=== PATIENT | male | born 1985 | race Caucasian/White ===

== ENCOUNTER 2018-11-13 18:10 | Inpatient (IN) ==
--- NOTE | 2018-11-13 18:14 | Emergency Department Note ---
Disposition Clinical Impression: Hyponatremia Disposition: Admitted As Inpatient Condition: Good Time of Disposition: 23:17 General Adult HPI - General Stated complaint: General illness Time Seen by Provider: 11/13/18 18:13 Nursing Notes Reviewed: Yes Vital Signs Reviewed: Yes - History of Present Illness HPI Narrative: 33-year-old male who presents the emergency department via EMS from the [facility] due to nausea, vomiting and elevated glucose. The patient was seen today due to 3 days worth of vomiting, abdominal and back pain. The patient states he has diabetes for which he takes metformin but was told he needs to go to start taking insulin which she has not started. He also has a history of pancreatitis and this feels slightly similar but not as severe. He notes that he was concerned about food poisoning getting some old mustard that he ate and had several episodes of vomiting but this has since resolved. The patient was seen at [facility] and was given 1 L fluid bolus and reportedly sugar went down from 400-200. Patient states he continues to have slight abdominal pain and back pain but this is improving. He denies any dysuria, hematuria, polyuria, polydipsia, lightheadedness, dizziness, chest pain, shortness of breath. The patient wanted a work note as he has been having difficulty twisting with his back and abdominal pain. He denies current alcoholism. At the [facility] the patient was found to be hyperglycemic with glucose 506. Lipase elevated at 45. Otherwise patient had slight leukocytosis 12.3 hemoglobin stable 15.5. Urinalysis shows elevated glucose and 10 ketones but no evidence of urinary tract infection. The patient was sent to the emergency department at [place] secondary to inability to pronate BMP to check kidney function due to his blood being lipophilic. - Related Data Previous Rx's Medication Instructions Recorded Cyclobenzaprine HCl 10 mg PO TID PRN #15 tablet 08/02/16 predniSONE [PredniSONE] 40 mg PO DAILY 5 Days tablet 08/02/16 Allergies Allergy/AdvReac Type Severity Reaction Status Date / Time Penicillins Allergy Anaphylaxis Verified 08/06/18 00:30 Sulfa (Sulfonamide Allergy Hives Verified 08/06/18 00:30 Antibiotics) Review of Systems: ROS per history of present illness, all other systems reviewed and negative or normal. All systems ED: reviewed and negative except as stated. Review of Systems: As Per HPI Past Medical History - Past Medical History Medical history: Reports: no medical history Psychiatric history: Reports: no psych history - Social History Smoking Status: Former smoker Smokeless Tobacco Status: No Alcohol use: Reports: none Drug use: Reports: none Physical Exam General: Conversant. No apparent distress. Follow commands. Appears stated age. Neck: No JVD. Trachea midline. Neck supple. Eyes: PERRL. No scleral icterus. HENT: Normocephalic and atraumatic. Slightly dry mucus membranes. Cardiovascular: Regular rate and rhythm. Normal S1 and S2. No murmurs appreciated. Normal capillary refill. Extremities well perfused with 2+ distal pulses bilaterally. No edema. Pulmonary: Normal and equal breath sounds bilaterally, anteriorly and posteriorly. No wheezes, rales, or rhonchi. Not in respiratory distress. Speaks in full sentences. Abdomen: Soft, nondistended. Mild epigastric pain. No bruits or masses. No guarding. No rigidity Neuro: Alert and oriented x3. No slurred speech. No focal deficits noted. Skin: No rashes noted on visualized skin. Musculoskeletal: No bony abnormalities visualized. Moves all extremities. Psych: Normal mood. Pleasant. Makes appropriate eye contact. Course - Reevaluation(s) Reevaluation #1: Labs hemolyzed likely secondary to significant triglyceride levels. We will redraw. Time: 18:43 Vital Signs Temperature 99.7 F H 11/13/18 18:20 Pulse Rate 100 11/13/18 18:20 Respiratory Rate 16 11/13/18 18:20 Blood Pressure 147/102 11/13/18 18:20 O2 Sat by Pulse Oximetry 99 11/13/18 18:20 Temperature 99.7 F H 11/13/18 18:20 Pulse Rate 79 11/13/18 23:00 Respiratory Rate 16 11/13/18 18:20 Blood Pressure 148/103 11/13/18 23:00 O2 Sat by Pulse Oximetry 99 11/13/18 18:20 Oxygen Delivery Oxygen Delivery Room Air Medical Decision Making - [facility] Narrative Medical decision making narrative: 33-year-old male who presents emergency Department with complaints of nausea, vomiting and generalized weakness over the last few days. He was sent from the [facility] due to lipemic blood draws with difficulty obtaining BMP to evaluate for suspected kidney failure per their notes. He was given 1L at the [facility]. Otherwise laboratory evaluation shows no significant leukocytosis. Lipase is elevated. The patient has cellulitis signs upon arrival. He has mid epigastric pain without rigidity or guarding. He does not appear significantly dehydrated or volume overloaded. The patient's care was delayed given difficulty obtaining adequate specimen for analysis but BMP shows hyponatremia down to 119. Repeat sodium 120. The patient's kidney function is normal. The patient does not appear fluid overloaded but this may be related to recent vomiting and dehydration. He does have a history of alcoholism but states he does not drink anymore. We will obtain urine studies and patient is agreeable to plan for admission. 1 L fluid bolus normal saline given. Discussed case with on-call hospitalist Dr. Clarke and Roro who agrees with plan for admission and accepts the patient to the inpatient service. Patient agrees with and understands course of treatment plan including plan for admission. All questions answered. - Medical Records Medical records reviewed: Yes I reviewed the patient's medical records. - Lab Data Lab results reviewed: Yes I reviewed the patient's lab results. Result diagrams: 11/13/18 21:48 Lab Results 11/13/18 11/13/18 11/13/18 Range/Units 18:43 18:43 19:46 Sodium 120 L* (136-145) mEq/L Potassium 4.3 (3.5-5.1) mEq/L Chloride 94 L (98-107) mEq/L Carbon Dioxide 22 L (23-29) mEq/L BUN 8 (6-20) mg/dL Creatinine 0.77 (0.70-1.30) mg/dL Est GFR ( Amer) > 60 (> 60) Est GFR (Non-Af Amer) > 60 (> 60) BUN/Creatinine Ratio 10 (6-26) Glucose 216 H (70-105) mg/dL Calculated Osmolality 255 L (280-300) Calcium 8.0 L (8.6-10.3) mg/dL Albumin (3.5-5.7) g/dL Beta-Hydroxybutyric Acd 1.35 H (0.02-0.27) mmol/L Urine Color (Yellow) Urine Clarity (Clear) Urine pH (5.0-8.0) pH Units Ur Specific [place] (1.010-1.025) Urine Protein (Neg-Trace) mg/dL Urine Glucose (UA) (Normal) mg/dL Urine Ketones (Negative) mg/dL Urine Blood (Negative) Urine Nitrite (Negative) Urine Bilirubin (Negative) Urine Urobilinogen (Normal) mg/dL Ur Leukocyte Esterase (Negative) Urine Creatinine mg/dL Urine Sodium mEq/L Specimen Rejected Hemolyzed 11/13/18 11/13/18 11/13/18 Range/Units 21:48 21:48 23:02 Sodium 121 L (136-145) mEq/L Potassium (3.5-5.1) mEq/L Chloride (98-107) mEq/L Carbon Dioxide (23-29) mEq/L BUN (6-20) mg/dL Creatinine (0.70-1.30) mg/dL Est GFR ( Amer) (> 60) Est GFR (Non-Af Amer) (> 60) BUN/Creatinine Ratio (6-26) Glucose (70-105) mg/dL Calculated Osmolality (280-300) Calcium (8.6-10.3) mg/dL Albumin 4.4 (3.5-5.7) g/dL Beta-Hydroxybutyric Acd (0.02-0.27) mmol/L Urine Color Yellow (Yellow) Urine Clarity Clear (Clear) Urine pH 6.0 (5.0-8.0) pH Units Ur Specific [place] > 1.030 H (1.010-1.025) Urine Protein 30 H (Neg-Trace) mg/dL Urine Glucose (UA) >=1000 H (Normal) mg/dL Urine Ketones 80 H (Negative) mg/dL Urine Blood Negative (Negative) Urine Nitrite Negative (Negative) Urine Bilirubin Negative (Negative) Urine Urobilinogen Normal (Normal) mg/dL Ur Leukocyte Esterase Trace H (Negative) Urine Creatinine mg/dL Urine Sodium mEq/L Specimen Rejected 11/13/18 Range/Units 23:02 Sodium (136-145) mEq/L Potassium (3.5-5.1) mEq/L Chloride (98-107) mEq/L Carbon Dioxide (23-29) mEq/L BUN (6-20) mg/dL Creatinine (0.70-1.30) mg/dL Est GFR ( Amer) (> 60) Est GFR (Non-Af Amer) (> 60) BUN/Creatinine Ratio (6-26) Glucose (70-105) mg/dL Calculated Osmolality (280-300) Calcium (8.6-10.3) mg/dL Albumin (3.5-5.7) g/dL Beta-Hydroxybutyric Acd (0.02-0.27) mmol/L Urine Color (Yellow) Urine Clarity (Clear) Urine pH (5.0-8.0) pH Units Ur Specific [place] (1.010-1.025) Urine Protein (Neg-Trace) mg/dL Urine Glucose (UA) (Normal) mg/dL Urine Ketones (Negative) mg/dL Urine Blood (Negative) Urine Nitrite (Negative) Urine Bilirubin (Negative) Urine Urobilinogen (Normal) mg/dL Ur Leukocyte Esterase (Negative) Urine Creatinine 91 mg/dL Urine Sodium 82.0 mEq/L Specimen Rejected Attestation Statement - Attestation Attestation: I, Reinaldo Del Valle DO, examined this patient [id number] and my medical decision-making was reviewed with Dr. Susie Bland, Resident Physician. I agree with the documented findings, disposition and treatment plan as described except to the extent set forth below. I personally supervised and was present for the ochoa/critical portions of the procedures completed by the resident documented below. Please see my progress notes for details.
--- NOTE | 2018-11-13 20:06 | Emergency Department Note ---
Disposition Clinical Impression: Hyponatremia Disposition: Admitted As Inpatient Condition: Fair Time of Disposition: 23:45 General Adult HPI - General Chief complaint: ED General Medical Stated complaint: General illness Time Seen by Provider: 11/13/18 18:13 Source: patient, EMS Limitations: no limitations - History of Present Illness Pain Scale: 7 - Related Data Previous Rx's Medication Instructions Recorded Cyclobenzaprine HCl 10 mg PO TID PRN #15 tablet 08/02/16 predniSONE [PredniSONE] 40 mg PO DAILY 5 Days tablet 08/02/16 Allergies Allergy/AdvReac Type Severity Reaction Status Date / Time Penicillins Allergy Anaphylaxis Verified 08/06/18 00:30 Sulfa (Sulfonamide Allergy Hives Verified 08/06/18 00:30 Antibiotics) Past Medical History - Past Medical History Medical history: Reports: diabetes, hyperlipidemia Psychiatric history: Reports: no psych history - Social History Smoking Status: Current every day smoker Smokeless Tobacco Status: No Alcohol use: Reports: none Drug use: Reports: none Physical Exam - General Limitations: no limitations General appearance: alert, in no apparent distress Course Vital Signs Temperature 99.7 F H 11/13/18 18:20 Pulse Rate 100 11/13/18 18:20 Respiratory Rate 16 11/13/18 18:20 Blood Pressure 147/102 11/13/18 18:20 O2 Sat by Pulse Oximetry 99 11/13/18 18:20 Temperature 99.7 F H 11/13/18 18:20 Pulse Rate 79 11/13/18 23:00 Respiratory Rate 16 11/13/18 18:20 Blood Pressure 148/103 11/13/18 23:00 O2 Sat by Pulse Oximetry 99 11/13/18 18:20 Oxygen Delivery Oxygen Delivery Room Air Medical Decision Making - Lab Data Result diagrams: 11/13/18 21:48 Lab Results 11/13/18 11/13/18 11/13/18 Range/Units 18:43 18:43 19:46 Sodium 120 L* (136-145) mEq/L Potassium 4.3 (3.5-5.1) mEq/L Chloride 94 L (98-107) mEq/L Carbon Dioxide 22 L (23-29) mEq/L BUN 8 (6-20) mg/dL Creatinine 0.77 (0.70-1.30) mg/dL Est GFR ( Amer) > 60 (> 60) Est GFR (Non-Af Amer) > 60 (> 60) BUN/Creatinine Ratio 10 (6-26) Glucose 216 H (70-105) mg/dL Calculated Osmolality 255 L (280-300) Calcium 8.0 L (8.6-10.3) mg/dL Albumin (3.5-5.7) g/dL Beta-Hydroxybutyric Acd 1.35 H (0.02-0.27) mmol/L Urine Color (Yellow) Urine Clarity (Clear) Urine pH (5.0-8.0) pH Units Ur Specific [place] (1.010-1.025) Urine Protein (Neg-Trace) mg/dL Urine Glucose (UA) (Normal) mg/dL Urine Ketones (Negative) mg/dL Urine Blood (Negative) Urine Nitrite (Negative) Urine Bilirubin (Negative) Urine Urobilinogen (Normal) mg/dL Ur Leukocyte Esterase (Negative) Urine Creatinine mg/dL Urine Sodium mEq/L Specimen Rejected Hemolyzed 11/13/18 11/13/18 11/13/18 Range/Units 21:48 21:48 23:02 Sodium 121 L (136-145) mEq/L Potassium (3.5-5.1) mEq/L Chloride (98-107) mEq/L Carbon Dioxide (23-29) mEq/L BUN (6-20) mg/dL Creatinine (0.70-1.30) mg/dL Est GFR ( Amer) (> 60) Est GFR (Non-Af Amer) (> 60) BUN/Creatinine Ratio (6-26) Glucose (70-105) mg/dL Calculated Osmolality (280-300) Calcium (8.6-10.3) mg/dL Albumin 4.4 (3.5-5.7) g/dL Beta-Hydroxybutyric Acd (0.02-0.27) mmol/L Urine Color Yellow (Yellow) Urine Clarity Clear (Clear) Urine pH 6.0 (5.0-8.0) pH Units Ur Specific [place] > 1.030 H (1.010-1.025) Urine Protein 30 H (Neg-Trace) mg/dL Urine Glucose (UA) >=1000 H (Normal) mg/dL Urine Ketones 80 H (Negative) mg/dL Urine Blood Negative (Negative) Urine Nitrite Negative (Negative) Urine Bilirubin Negative (Negative) Urine Urobilinogen Normal (Normal) mg/dL Ur Leukocyte Esterase Trace H (Negative) Urine Creatinine mg/dL Urine Sodium mEq/L Specimen Rejected 11/13/18 Range/Units 23:02 Sodium (136-145) mEq/L Potassium (3.5-5.1) mEq/L Chloride (98-107) mEq/L Carbon Dioxide (23-29) mEq/L BUN (6-20) mg/dL Creatinine (0.70-1.30) mg/dL Est GFR ( Amer) (> 60) Est GFR (Non-Af Amer) (> 60) BUN/Creatinine Ratio (6-26) Glucose (70-105) mg/dL Calculated Osmolality (280-300) Calcium (8.6-10.3) mg/dL Albumin (3.5-5.7) g/dL Beta-Hydroxybutyric Acd (0.02-0.27) mmol/L Urine Color (Yellow) Urine Clarity (Clear) Urine pH (5.0-8.0) pH Units Ur Specific [place] (1.010-1.025) Urine Protein (Neg-Trace) mg/dL Urine Glucose (UA) (Normal) mg/dL Urine Ketones (Negative) mg/dL Urine Blood (Negative) Urine Nitrite (Negative) Urine Bilirubin (Negative) Urine Urobilinogen (Normal) mg/dL Ur Leukocyte Esterase (Negative) Urine Creatinine 91 mg/dL Urine Sodium 82.0 mEq/L Specimen Rejected Attestation Statement - Attestation Attestation: I, Reinaldo Del Valle DO, examined this patient [id number] and my medical decision-making was reviewed with Dr. Susie Bland, Resident Physician. I agree with the documented findings, disposition and treatment plan as described except to the extent set forth below. I personally supervised and was present for the ochoa/critical portions of the procedures completed by the resident documented below. Please see my progress notes for details. 33-year-old male presents emergency room for evaluation of lab abnormality. He was transferred from the [facility] for evaluation of the basilic blood that was unable to be evaluated at their facility. Patient has long- standing elevated lipids and takes simvastatin for this at home. He denies any chest pain shortness of breath fevers or chills. He had nausea vomiting on Tuesday. Patient has not had any symptoms since then except for generalized muscle aches and malaise. He has been able to eat and drink without any difficulty. He has no other acute issues at this time. He has not traveled outside the country. He denies any specific sick contacts. Patient is otherwise stable. Vital signs reviewed and are unremarkable. Patient is sitting upright in the bed. He continued asked me why he got transferred here during her initial evaluation. His lungs are clear his heart is regular his abdomen is soft. His extremities are normal. Patient is otherwise in no distress at this time. He was just told that his kidney function was abnormal and that is why they wanted to be evaluated but does not know any of the numbers and has not seen any labs. Patient will be evaluated with a screening chemistry panel here in the emergency department the remainder of his labs from the [facility] were reviewed and were unremarkable at this time. Patient is otherwise stable and does not require any other immediate intervention. See detailed documentation the physical exam, medical intervention, medical decision-making and disposition the resident physician's note. No critical care applied the patient's treatment course at this time 2335 Patient has hyponatremia. She does have a history of alcohol abuse but has been over 2 years since his last drink. Patient does also have profound hyperlipidemia. His repeat sodium here was 121. Patient will be admitted for what appears to be symptomatic hyponatremia of unknown etiology. Urinalysis along with urine sodiums will be collected. The hospitalist Dr. Mehta reviewed the case and no other recommendations or concerns. Patient again is denying abdominal pain or other complaints at this point that justify further imaging or workup. Labs and home medications were reviewed. Patient will be admitted and monitored until the admission process is completed.
[2018-11-13 21:31] LABS: BUN/Creatinine Ratio 10 (6-26); Blood Urea Nitrogen 8 mg/dL (6-20); Carbon Dioxide 22 mEq/L (23-29); Chloride 94 mEq/L (98-107); Glucose 216 mg/dL (70-105); Osmolality,Calculated 255 (280-300); Potassium 4.3 mEq/L (3.5-5.1); Sodium 120 mEq/L (136-145); eGFR For African Americans > 60 (> 60); eGFR For Non-African Americans > 60 (> 60)
[2018-11-13] MEDS ORDERED: 0.9 % Sodium Chloride 1,000 ML IVC STA (22:51)
[2018-11-13 23:25] LABS: Bilirubin,Urine Negative (Negative); Blood,Urine Negative (Negative); Clarity,Urine Clear (Clear); Color,Urine Yellow (Yellow); Glucose,Urine (UA) >=1000 mg/dL (Normal); Ketones,Urine 80 mg/dL (Negative); Leukocyte Esterase,Urine Trace (Negative); Nitrite,Urine Negative (Negative); Protein,Urine 30 mg/dL (Neg-Trace); Specific Gravity,Urine > 1.030 (1.010-1.025); Urobilinogen,Urine Normal (Normal)
[2018-11-13 23:27] LABS: Mean Platelet Volume 12.7 fL (9.4-12.4)
[2018-11-14 00:26] LABS: Basophils % 0.3 %; Eosinophils # 0.2 K/mcL (0.0-0.6); Immature Granulocytes % 0.4 % (0-4); Lymphocytes # 1.6 K/mcL (0.6-4.6); Lymphocytes % 13.6 %; Monocytes % 8.1 %; Nucleated Red Blood Cells 1.3 /100 WBC (0); Red Blood Count 4.82 M/mcL (4.19-5.50); Red Cell Distribution Width 14.3 % (11.5-14.5); Segmented Neutrophils % 75.6 %
[2018-11-14 00:28] LABS: Neutrophils # 9.1 K/mcL (1.6-8.9)
[2018-11-14 00:30] LABS: Hemoglobin 14.6 g/dL (12.9-16.9)
[2018-11-14 00:31] LABS: Hematocrit 40.6 % (37.5-50.1); Mean Corpuscular Hemoglobin 30.3 pg (28.0-33.3); Mean Corpuscular Volume 84.2 fL (83.0-100.0)
[2018-11-14 00:39] LABS: Platelet Count 208 K/mcL (140-400)
[2018-11-14 00:40] LABS: Platelet Estimate Normal (Normal)
[2018-11-14] MEDS ORDERED: Naloxone 0.4 MG/ML INJ IVP PRN ×2 (03:36→07:40)
--- NOTE | 2018-11-14 04:27 | Internal Med History&Physical ---
<Olvin Pal - Last Filed: 11/14/18 06:39> Date of Encounter: 11/14/18 Time of Encounter: 04:26 Internal Medicine - H&P: HPI History of present illness: Mr. Liang is a 33 year old male who presented to [facility] ED via EMS from the [facility] on 11/14/18 with chief complaint of nausea, vomiting, generalized weakness for the past few days, as well as an elevated glucose. He reported 3 days of vomiting, abdominal pain and back pain. He reported that he was concerned about food poisoning after eating hold mustard. At the [facility], he was found to be hyperglycemic with a glucose of 506. His lipase was elevated at 45. Slight leukocytosis with present at 12.3. He was given IV fluids, and his glucose levels subsequently dropped. On arrival, vital showed an elevated temperature 99.7, heart rate of 100, and elevated blood pressure 147/102. All other vital signs were within normal limits. Labs showed an elevated white blood cell count of 12.0 with left shift, a low sodium at 120, an elevated glucose at 216, and an elevated beta hydroxybutyric acid at 1.35. Urine studies have been ordered, including urine sodium and urine osmolality, and are currently pending. On arrival, patient initially had mid epigastric pain without rigidity or guarding. He did not appear to be dehydrated or volume overloaded. Found to be hyponatremic on arrival. He has a known history of alcoholism, but states that he has not drank for many years. During my interview with him, he states that he is feeling well, and has no complaints at this time. He currently denies nausea, vomiting, or abdominal pain. He states that he is a former drinker, but quit approximately 2 years ago. While he was a drinker, he states that he drank heavily, drinking as many as 30 beers per day. Patient also admits to smoking approximately one half pack per day for the last 7 years on and off. He is currently receiving 1 L of normal saline. He appears euvolemic on exam; no dry mucous membranes, poor skin turgor, or extremity edema. Patient's hyponatremia has multiple potential etiologies, including volume loss due to vomiting and SIADH. Urine studies are currently pending. He appears to be responding well to IV fluids. Past Med Surg Social Fam HX - Past Medical History Medical history: diabetes, hyperlipidemia Psychiatric history: no psych history - Past Surgical History Surgical History: herniorrhaphy Additional surgical history: neck laced for biopsy, - Social History Smoking Status: Current every day smoker Packs per day: 1/2 Smokeless Tobacco Status: No Alcohol use: none Drug use: none - Family History Grandmother Living Status: Still Living Hx Family Endocrine Disorder: Yes Grandfather Living Status: Still Living Hx Family Cardiac Disorders: Yes Internal Medicine - H&P: Meds Acetaminophen [Tylenol] 1,000 mg PO Q6HR PRN 11/14/18 [History] Fish Oil 1,200 mg Fish Oil 1,000 mg PO DAILY 11/14/18 [History] Ibuprofen [Motrin] 600 mg PO Q6HR PRN 11/14/18 [History] Metformin HCl [Fortamet] 500 mg PO DAILY 11/14/18 [History] Simvastatin [Zocor] 11/14/18 [History] Allergy/AdvReac Type Severity Reaction Status Date / Time Penicillins Allergy Anaphylaxis Verified 08/06/18 00:30 Sulfa (Sulfonamide Allergy Hives Verified 08/06/18 00:30 Antibiotics) All Systems PM: A 10-system review of systems was performed and is negative for pertinent findin gs except as documented above in the HPI. - Constitutional Constitutional: no chills, no fever(s) - Cardiovascular Cardiovascular ROS IM: no diaphoresis, no dyspnea, no palpitations - Respiratory Respiratory: no cough, no dyspnea, no wheezing - Neurological Neurological ROS: no confusion, no convulsions, no focal weakness, no numbness, no tingling, no tremor(s) - Constitutional Vitals: Temp Pulse Resp BP Pulse Ox 99 F 75 17 146/88 98 11/14/18 03:59 11/14/18 03:59 11/14/18 03:59 11/14/18 03:59 11/14/18 03:59 Exam: General: A&O X3, conversant, no acute distress Head: atraumatic, normocephalic Eye: PERRL, EOMI, conjuntiva pink, sclera anicteric Neck: Supple, trachea midline; No lymphadenopathy Respiratory: CTAB. No accessory muscle use, wheezes, rales, or rhonchi Cardiovascular: RRR, +S1, +S2; no murmurs, rubs, gallops Abdomen: Soft, nontender Extremities: warm, radial pulses palpable and symmetrical Neurological: No focal deficits Psychiatric: Normal affect, normal mood Skin: Dry, intact Internal Med - H&P Results - Labs CBC & Chem 7: 11/13/18 18:43 11/13/18 21:48 Labs: Short CBC 11/13/18 Range/Units 18:43 WBC 12.0 H (4.3-11.1) K/mcL Hgb 14.6 (12.9-16.9) g/dL Hct 40.6 (37.5-50.1) % Plt Count 208 (140-400) K/mcL Neutrophils # 9.1 H (1.6-8.9) K/mcL BMP 11/13/18 11/13/18 19:46 21:48 Sodium 120 L* 121 L Potassium 4.3 Chloride 94 L Carbon Dioxide 22 L BUN 8 Creatinine 0.77 Glucose 216 H Calcium 8.0 L Liver Function 11/13/18 Range/Units 21:48 Albumin 4.4 (3.5-5.7) g/dL Urine 11/13/18 Range/Units 23:02 Urine Color Yellow (Yellow) Urine Clarity Clear (Clear) Urine pH 6.0 (5.0-8.0) pH Units Ur Specific [place] > 1.030 H (1.010-1.025) Urine Protein 30 H (Neg-Trace) mg/dL Urine Glucose (UA) >=1000 H (Normal) mg/dL - Assessment and Plan (1) Hyponatremia Current Visit: Yes Status: Acute Assessment and plan: - Presented with a low sodium level at 120 - Received 1 L of normal saline; subsequent sodium level was 121 - Etiology is unknown at this time; potential causes include SIADH and volume loss due to nausea and vomiting - SIADH is less likely, but patient does have a known history of smoking; one half pack per day for the last 7 years - Patient also reports that he used to be a heavy drinker, drinking as many as 30 beers per day; states that he has not had a drink in over 2 years - On physical exam, patient does not have any signs of dehydration or volume overload - He exhibits no signs of confusion, no weakness, paresthesias, or visual disturbances - Per chart review, no prior sodium level is available for comparison Plan - Urine studies are currently pending to determine underlying cause of hyponatremia: Urine sodium, urine osmolality, urine specific gravity - Replace fluid as necessary (2) Diabetes Current Visit: Yes Status: Acute Assessment and plan: - Resume home medications Qualifiers: Qualified Code(s): E11.9 - Type 2 diabetes mellitus without complications (3) Nausea and vomiting Current Visit: Yes Status: Acute Assessment and plan: - Resolved Qualifiers: Qualified Code(s): R11.2 - Nausea with vomiting, unspecified (4) Abdominal pain Current Visit: Yes Status: Acute Assessment and plan: - Resolved Qualifiers: Qualified Code(s): R10.9 - Unspecified abdominal pain - Time Spent With Patient Total time spent is greater than 50% in coordination of care (as documented) at patient's floor/unit and/or counseling patient: <Megan Clarke - Last Filed: 11/14/18 08:24> Date of Encounter: 11/14/18 Internal Medicine - H&P: HPI History of present illness: Mr. Liang is a 33 year old male All Systems PM: A 10-system review of systems was performed and is negative for pertinent findings except as documented above in the HPI. - Constitutional Vitals: Temp Pulse Resp BP Pulse Ox 98.2 F 78 20 129/90 95 11/14/18 07:36 11/14/18 07:36 11/14/18 07:36 11/14/18 07:36 11/14/18 07:36 Internal Med - H&P Results - Labs CBC & Chem 7: 11/13/18 18:43 11/13/18 21:48 Labs: Short CBC 11/13/18 Range/Units 18:43 WBC 12.0 H (4.3-11.1) K/mcL Hgb 14.6 (12.9-16.9) g/dL Hct 40.6 (37.5-50.1) % Plt Count 208 (140-400) K/mcL Neutrophils # 9.1 H (1.6-8.9) K/mcL BMP 11/13/18 11/13/18 19:46 21:48 Sodium 120 L* 121 L Potassium 4.3 Chloride 94 L Carbon Dioxide 22 L BUN 8 Creatinine 0.77 Glucose 216 H Calcium 8.0 L Liver Function 11/13/18 Range/Units 21:48 Albumin 4.4 (3.5-5.7) g/dL Urine 11/13/18 11/14/18 Range/Units 23:02 07:24 Urine Color Yellow Yellow (Yellow) Urine Clarity Clear Cloudy A (Clear) Urine pH 6.0 5.5 (5.0-8.0) pH Units Ur Specific [place] > 1.030 H 1.028 H (1.010-1.025) Urine Protein 30 H Trace (Neg-Trace) mg/dL Urine Glucose (UA) >=1000 H >=1000 H (Normal) mg/dL - Time Spent With Patient Total time spent is greater than 50% in coordination of care (as documented) at patient's floor/unit and/or counseling patient: - Attending Attestation I performed a history and physical examination of the patient and discussed his management with the resident. I reviewed the residents note and agree with the documented findings and plan of care
[2018-11-14] MEDS ORDERED: Dextrose Gel 15 GM/37.5 ML TUBE PO PRN ×2 (07:49)
[2018-11-14] MEDS ORDERED: *HR* Dextrose 50 % in Water (Syg) 50 ML SYRINGE IVP PRN (07:49)
[2018-11-14] MEDS ORDERED: D5% in Water 1,000 ML IVC PRN (07:49)
[2018-11-14 07:58] LABS: Bilirubin,Urine Negative (Negative); Blood,Urine Trace (Negative); Clarity,Urine Cloudy (Clear); Color,Urine Yellow (Yellow); Glucose,Urine (UA) >=1000 mg/dL (Normal); Ketones,Urine 80 mg/dL (Negative); Leukocyte Esterase,Urine Moderate (Negative); Nitrite,Urine Negative (Negative); PH,Urine 5.5 pH Units (5.0-8.0); Protein,Urine Trace mg/dL (Neg-Trace); Specific Gravity,Urine 1.028 (1.010-1.025); Urobilinogen,Urine Normal (Normal)
[2018-11-14] MEDS ORDERED: 0.9 % Sodium Chloride 1,000 ML IVC SCH (08:00)
[2018-11-14 08:04] LABS: Bacteria,Urine Few per hpf (None-Few); Hyaline Casts,Urine None Seen per lpf (None-Few); Squamous Epithelial Cell,Urine Many per lpf (None-Few); WBC,Urine TNTC per hpf (0-3)
[2018-11-14] MEDS ORDERED: Insulin LISPRO 300 UNITS/3 ML VIAL SQ ONE (08:55)
[2018-11-14] MEDS ORDERED: FISH OIL PO SCH (09:00)
[2018-11-14] MEDS ORDERED: Insulin DETEMIR 100 UNIT/ML X5UNITS SQ SCH (09:00)
[2018-11-14] MEDS: Insulin LISPRO 300 UNITS/3 ML VIAL SQ SCH ×2 (09:04→11:34)
[2018-11-14 09:49] LABS: Basophils % 0.5 %
[2018-11-14 10:10] LABS: Prothrombin Time 11.3 Seconds (9.4-12.1)
[2018-11-14 10:12] LABS: Activated Partial Thrombo Time 28.6 Seconds (26.0-36.0)
[2018-11-14 10:31] LABS: Basophils # 0.1 K/mcL (0.0-0.2); Eosinophils # 0.2 K/mcL (0.0-0.6); Eosinophils % 2.2 %; Immature Granulocytes % 0.5 % (0-4); Lymphocytes # 1.9 K/mcL (0.6-4.6); Mean Corpuscular Volume 83.4 fL (83.0-100.0); Mean Platelet Volume 12.1 fL (9.4-12.4); Monocytes # 0.8 K/mcL (0.0-1.3); Monocytes % 7.7 %; Neutrophils # 7.9 K/mcL (1.6-8.9); Platelet Count 217 K/mcL (140-400); Red Cell Distribution Width 13.9 % (11.5-14.5); Segmented Neutrophils % 72.1 %
[2018-11-14 11:05] LABS: Mean Corpuscular HGB Conc 34.9 g/dL (31.6-35.5); Red Blood Count 3.55 M/mcL (4.19-5.50)
[2018-11-14 11:06] LABS: White Blood Count 10.9 K/mcL (4.3-11.1)
[2018-11-14 11:08] LABS: Estimated Average Glucose 349 mg/dl
[2018-11-14 11:10] VITALS: BP 128/84
[2018-11-14 11:10] LABS: Hematocrit 38.6 % (37.5-50.1); Hemoglobin 14.4 g/dL (12.9-16.9)
[2018-11-14 12:03] LABS: Alanine Aminotransferase 13 Units/L (7-52); Albumin 3.5 g/dL (3.5-5.7); Albumin/Globulin Ratio 1.3 (1.1-2.2); Alkaline Phosphatase 85 Units/L (34-104); Aspartate Amino Transferase 38 Units/L (13-39); BUN/Creatinine Ratio 18 (6-26); Bilirubin,Indirect 0.7 mg/dL (0.0-1.2); Bilirubin,Total 0.7 mg/dL (0.3-1.0); Blood Urea Nitrogen 11 mg/dL (6-20); Calcium 7.9 mg/dL (8.6-10.3); Carbon Dioxide 22 mEq/L (23-29); Chloride 97 mEq/L (98-107); Globulin 2.6 g/dL (2.4-3.5); Glucose 268 mg/dL (70-105); Magnesium 1.9 mg/dL (1.6-2.6); Osmolality,Calculated 279 (280-300); Potassium 4.9 mEq/L (3.5-5.1); Sodium 130 mEq/L (136-145); Total Protein 6.1 g/dL (6.4-8.9); eGFR For African Americans > 60 (> 60); eGFR For Non-African Americans > 60 (> 60)
[2018-11-14 12:16] LABS: Chol/HDL Ratio 32.7 (0-4.9); Cholesterol 556 mg/dL (< 200); HDL Cholesterol 17 mg/dL (40-59); Triglycerides 3258 mg/dL (< 150)
[2018-11-14 15:19] LABS: Amylase 12 Units/L (29-103); Lipase 107 Units/L (11-82)
--- NOTE | 2018-11-14 15:26 | Discharge Summary ---
- NOTES TO OUTPATIENT PROVIDER Notes to Outpatient Provider: Patient with a history of diabetes and hyperlipidemia was hospitalized here after presenting to the ER with complaints of back pain. During workup, he was noted to have hyponatremia with a sodium of 120. Patient received IV fluids here. Most likely his hyponatremia was due to severe hypertriglyceridemia. Patient is stable to be discharged home today. Sodium levels have improved to 130. She is being discharged on insulin in addition to increased dose of metformin. Patient will also be on 80 mg of simvastatin for his hyperlipidemia. 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 Liang is a 33 year old male Patient with a history of diabetes and hyperlipidemia was hospitalized here after presenting to the ER with complaints of back pain. During workup, he was noted to have hyponatremia with a sodium of 120. Patient received IV fluids here. Most likely his hyponatremia was due to severe hypertriglyceridemia. Patient is stable to be discharged home today. His triglycerides were 3258 today. Total cholesterol of 556. Sodium levels have improved to 130. His A1c was 13%. He is being discharged on insulin in addition to increased dose of metformin. Patient will also be on 80 mg of simvastatin for his hyperlipidemia. He did have abdominal pain, nausea and vomiting 2 days prior. The symptoms have now resolved. His lipase level was slightly elevated at 107 but patient has not had any abdominal pain or tenderness today. He is tolerating oral diet well. He needs close follow-up with his primary care provider to better manage his diabetes and hyperlipidemia. Discharge discussed with: patient, nurse - Time Spent with Patient Total time spent providing and/or coordinating discharge services: Time spent: Greater than 30 minutes (33 min), D/C greater than 8 hours after Admission - Discharge Medications Prescriptions: New Insulin Glargine [Lantus] 20 unit SQ DAILY #1 vial Insulin LISPRO [HumaLOG] 5 units SQ TIDWM #1 vial Metformin HCl [Glucophage] 1,000 mg PO DAILY #30 tablet Simvastatin [Zocor] 80 mg PO HS #60 tablet Syringe and Needle,Insulin,1Ml [Insulin Syringe] 1 each QID #120 disp.syrin Alcohol Antiseptic Pads [Alcohol Pads] 1 each TP QID #120 med..pad Continued Ibuprofen [Motrin] 600 mg PO Q6HR PRN PRN Reason: Pain Fish Oil 1,200 mg Fish Oil 1,000 mg PO DAILY Acetaminophen [Tylenol] 1,000 mg PO Q6HR PRN PRN Reason: Pain Discontinued Simvastatin [Zocor] Metformin HCl [Fortamet] 500 mg PO DAILY Home Medications: Acetaminophen [Tylenol] 1,000 mg PO Q6HR PRN 11/14/18 [History] Alcohol Antiseptic Pads [Alcohol Pads] 1 each TP QID #120 med..pad 11/14/18 [Rx] Fish Oil 1,200 mg Fish Oil 1,000 mg PO DAILY 11/14/18 [History] Ibuprofen [Motrin] 600 mg PO Q6HR PRN 11/14/18 [History] Insulin Glargine [Lantus] 20 unit SQ DAILY #1 vial 11/14/18 [Rx] Insulin LISPRO [HumaLOG] 5 units SQ TIDWM #1 vial 11/14/18 [Rx] Metformin HCl [Glucophage] 1,000 mg PO DAILY #30 tablet 11/14/18 [Rx] Simvastatin [Zocor] 80 mg PO HS #60 tablet 11/14/18 [Rx] Syringe and Needle,Insulin,1Ml [Insulin Syringe] 1 each QID #120 disp.syrin 11/14/18 [Rx] Allergies/Adverse Reactions: Allergy/AdvReac Type Severity Reaction Status Date / Time Penicillins Allergy Anaphylaxis Verified 08/06/18 00:30 Sulfa (Sulfonamide Allergy Hives Verified 08/06/18 00:30 Antibiotics) Date of admission: 11/14/18 12:36 [facility] care [facility] Consults: 11/14/18 12:41 Consult to Diabetes Education [CONS] Routine Comment: Reason for Consult: DM Discharging clinician: Deepak Shin Anticipated date of discharge: 11/14/18 - Constitutional Vitals: Temp Pulse Resp BP Pulse Ox 98.4 F 80 14 128/84 96 11/14/18 11:06 11/14/18 11:06 11/14/18 11:06 11/14/18 11:06 11/14/18 11:06 Exam: General: Patient is alert, no acute distress, oriented x 3 Respiratory: Good respiratory effort. Normal breath sounds. No wheezing or crackles. Cardiovascular: Regular rate and rhythm. s1 and s2 normal No clicks, rubs, gallops, or murmurs. No pedal edema Abdomen: Abdomen is soft, nontender. Bowel sounds are present Musculoskeletal: Spontaneously moving all extremities Skin: warm, dry, intact. Neuro: Alert oriented x 3 normal cranial nerves, no focal deficits - Patient Status Disposition: Home, Self-Care Condition: Good Functional capacity at discharge: independent ambulation Overall status at discharge: patient is progressing back to baseline - Discharge Instructions Instructions: Simvastatin (By mouth), Metformin (By mouth), Insulin Glargine (Injection), Insulin Lispro (Injection), Hyponatremia (DC), Diabetes Mellitus Type 2 in Adults (DC) [facility] Provider[facility] - 11/21/18 10:30 am (in 1-2 weeks) Forms: ED Satisfaction Letter, Work/School Release - Diet and Activity Activity: increase activity as tolerated Diet: diabetic diet, low fat, low cholesterol, low salt diet
[2018-11-14] MEDS ORDERED: Insulin LISPRO 300 UNITS/3 ML VIAL SQ SCH (21:00)
== END 2018-11-14 16:27 | disposition home or self-care (01) | DRG 641 ==
LOC: EMEROOARM 18:10 → 2ANU 18:10
PROVIDERS: ADMIT Internal Medicine Nephrology; ATTEND Internal Medicine Nephrology